=== PATIENT | male | born 1970 | race Caucasian/White ===

== ENCOUNTER → 2021-03-17 | Outpatient (CLI) | payer MEDICARE, OTHER ==
[~2021-03-17] VITALS: Ht 200.7 cm; Wt 158.8 kg
[~2021-03-17] MED LIST: ALPRAZOLAM0.5 MG PO; AMRIX15 MG PO; KLONOPIN TAB 00.5 MG PO; PAMELOR25 MG PO; PROVIGIL200 MG PO; SYNTHROID88 MCG PO; TOPROL XL25 MG PO
== END ==
LOC: OPSV 03-11 08:00
DX: G35 Multiple sclerosis (principal)
CPT/HCPCS: 96365; 96366; 96375; J1200; J2350; J2930; J7030

== ENCOUNTER → 2021-07-10 | Outpatient (CLI) | payer MEDICARE, OTHER ==
[~2021-07-10] VITALS: Ht 200.7 cm; Wt 158.8 kg
== END ==
LOC: OPSV 10:43
DX: G35 Multiple sclerosis (principal)
CPT/HCPCS: 96365; J2930; J7070

== ENCOUNTER → 2021-07-11 | Outpatient (CLI) | payer MEDICARE, OTHER ==
[~2021-07-11] VITALS: Ht 200.7 cm; Wt 158.8 kg
== END ==
LOC: OPSV 12:42
DX: G35 Multiple sclerosis (principal)
CPT/HCPCS: 96365; J2930; J7070

== ENCOUNTER → 2021-07-12 | Outpatient (CLI) | payer MEDICARE, OTHER ==
[~2021-07-12] VITALS: Ht 200.7 cm; Wt 158.8 kg
== END ==
LOC: OPSV 06:46
DX: G35 Multiple sclerosis (principal)
CPT/HCPCS: 96365; J2930; J7070

== ENCOUNTER → 2021-09-16 | Outpatient (CLI) | payer MEDICARE, OTHER ==
[~2021-09-16] VITALS: Ht 200.7 cm; Wt 158.8 kg
== END ==
LOC: OPSV 08:00
DX: G35 Multiple sclerosis (principal)
CPT/HCPCS: 96367; 96375; 96413; 96415; J1200; J2350; J2930; J7030

== ENCOUNTER → 2022-06-26 | Outpatient (CLI) | payer MEDICARE, OTHER ==
[~2022-06-26] VITALS: Ht 200.7 cm; Wt 158.8 kg
== END ==
LOC: OPSV 09:00
DX: G35 Multiple sclerosis (principal)
CPT/HCPCS: 96375; 96413; 96415; J1200; J2350; J2930; J7030